=== PATIENT | female | born 1990 | race Caucasian/White ===

== ENCOUNTER 2020-05-19 13:16 | Emergency (ER) | payer OTHER ==
[~2020-05-19] VITALS: Ht 165.1 cm; Wt 59.0 kg
[2020-05-19] MEDS ORDERED: CLARITIN10 M3 PO (13:24)
[2020-05-19] MEDS ORDERED: SUPER THERAVIT1 EACH PO (13:31)
[2020-05-19] MEDS ORDERED: VITAMIN D310 MC2 PO (13:32)
[2020-05-19 13:48] LABS: URINE BILIRUBIN NEGATIVE (Negative); URINE BLOOD NEGATIVE (Negative); URINE CLARITY CLEAR; URINE COLOR YELLOW; URINE GLUCOSE-RANDOM* NEGATIVE (Negative); URINE KETONES 3+ (Negative); URINE LEUKOCYTES-REFLEX NEGATIVE (Negative); URINE NITRITE-REFLEX NEGATIVE (Negative); URINE PROTEIN (DIPSTICK) NEGATIVE (Negative); URINE UROBILINOGEN 0.2 E.U./dl (0.2-1.0)
[2020-05-19 13:54] LABS: URINE REDUCING SUBSTANCE NEGATIVE
[2020-05-19 14:06] LABS: ABSOLUTE NEUTROPHILS 9.2 thou/uL (1.4-8.2); BASOPHILS 0.2 % (0.0-2.0); EOSINOPHILS 0.1 % (0.0-3.0); LYMPHOCYTES 6.3 % (24.0-44.0); MCV 88.3 fL (80.0-100.0); MONOCYTES 3.3 % (1.0-8.0); PLATELET COUNT 287 thou/uL (150-400); POLYS 90.1 % (36.0-66.0); RBC 4.99 mil/uL (4.20-5.00); WBC 10.3 thou/uL (4.0-11.0)
[2020-05-19 14:09] LABS: CALCIUM 9.9 mg/dL (8.5-10.1); POTASSIUM 3.6 mmol/L (3.5-5.1)
[2020-05-19 14:15] LABS: ALBUMIN 4.6 g/dL (3.4-5.0); TOTAL BILIRUBIN 0.7 mg/dL (0.2-1.0); TOTAL PROTEIN 8.2 g/dL (6.4-8.2)
[2020-05-19] MEDS ORDERED: ONDANSETRON HCL4 M2 PO (15:50)
[2020-05-19] MEDS ORDERED: NORCO 5-325 TA1 EAC2 PO (15:50)
[2020-05-19 16:18] VITALS: BP 108/59
== END 2020-05-19 16:20 | disposition home or self-care (01) ==
LOC: ER 13:16
PROVIDERS: Physician Assistant
DX: N83.201 Unspecified ovarian cyst, right side (principal); Z79.899 Other long term (current) drug therapy; Z88.2 Allergy status to sulfonamides